=== PATIENT | female | born 1980 | race Caucasian/White ===

== ENCOUNTER → 2017-12-27 | Outpatient (CLI) | payer OTHER ==
[~2017-12-27] MED LIST: PRENTAB26 PO; SERT25TA PO
[2017-12-27 16:57] LABS: BASO % 0.2 %; BASO ABS # 0.02 K/uL (0-0.2); HEMATOCRIT 39.3 % (37-47); HEMOGLOBIN 13.5 g/dL (12.0-16.0); IG# 0.01 K/uL (0.00-0.02); LYMPH % 19.3 %; MEAN CELL VOLUME 89.5 fL (80-100); MEAN CORPUSCULAR HEMOGLOBIN 30.8 pg (25-34); MEAN CORPUSCULAR HGB CONC 34.4 g/dl (32-36); MEAN PLATELET VOLUME 10.4 fL (7.4-10.4); MONO % 4.6 %; MONO ABS # 0.45 K/uL (0.11-0.59); NEUT % 75.8 %; NEUT ABS # 7.48 K/uL (1.4-6.5); PLATELET COUNT 250 K/uL (130-400); RED CELL DISTRIBUTION WIDTH CV 12.7 % (11.5-14.5); RED CELL DISTRIBUTION WIDTH SD 41.1 fL (36.4-46.3); WHITE BLOOD COUNT 9.86 K/uL (4.8-10.8)
[2017-12-27 17:14] LABS: ALT/SGPT 18 U/L (12-78); AST/SGOT 11 U/L (15-37); BLOOD UREA NITROGEN 14 mg/dl (7-18); CALCIUM 8.9 mg/dl (8.5-10.1); CARBON DIOXIDE 28 mmol/L (21-32); CREATININE 0.81 mg/dl (0.60-1.20); GLUCOSE 98 mg/dl (70-99); POTASSIUM 3.7 mmol/L (3.5-5.1); SODIUM 135 mmol/L (136-145)
[2017-12-27 17:24] LABS: ALKALINE PHOSPHATASE 47 U/L (45-117); CHOLESTEROL 272 mg/dl (0-200); LDL CHOLESTEROL CALCULATED 160 mg/dl; TOTAL PROTEIN 8.7 gm/dl (6.4-8.2)
== END | disposition home or self-care (01) ==
LOC: C.LABBC 14:36
PROVIDERS: ATTEND Nurse Practitioner Adult Health
DX: R94.6 Abnormal results of thyroid function studies (principal); G43.909 Migraine, unspecified, not intractable, without status migrainosus

== ENCOUNTER → 2018-01-11 | Outpatient (CLI) | payer OTHER ==
[~2018-01-11] MED LIST changes: +GADAVIST IV PRN
--- NOTE | 2018-01-11 16:34 | DIAGNOSTIC IMAGING REPORT ---
BRAIN COMBO CLINICAL HISTORY: 37 years-old Female presenting with MIGRAINE HEADACHES, stiff neck, headache started on control, abnormal thyroid test. TECHNIQUE: Multisequence, multiplanar MR imaging of the brain was performed before and after the administration of intravenous contrast. IV contrast: 7 mL of Gadavist. COMPARISON: None. FINDINGS: Ventricles and sulci normal in size. Brain parenchyma normal in appearance with preserved rendon-white differentiation. No mass effect or midline shift. No restricted diffusion to suggest acute ischemia. No hemorrhage. No extra-axial fluid collection. T2 skull base flow voids preserved with the exception of the left sigmoid sinus and internal jugular vein, which demonstrates slightly increased signal intensity. Normal flow void in the left transverse sinus. Postcontrast imaging demonstrates patency of the left sigmoid sinus and left internal jugular vein. No abnormal parenchymal enhancement. Bone marrow signal intensity within the calvarium within normal limits. IMPRESSION: 1. No acute intracranial pathology. No abnormal enhancement. Electronically signed by: Keo Luque M.D. 01/11/2018 4:33 PM Dictated Date/Time: 01/11/2018 4:28 PM
== END | disposition home or self-care (01) ==
LOC: C.CTS 15:37
PROVIDERS: ATTEND Nurse Practitioner Adult Health
DX: E03.8 Other specified hypothyroidism (principal); G43.909 Migraine, unspecified, not intractable, without status migrainosus

== ENCOUNTER → 2018-01-12 | Outpatient (CLI) | payer OTHER ==
[~2018-01-12] MED LIST changes: -GADAVIST IV PRN
== END | disposition home or self-care (01) ==
LOC: C.LABSPEC 12:56
PROVIDERS: ATTEND Physician Assistant
DX: Z30.430 Encounter for insertion of intrauterine contraceptive device (principal)